=== PATIENT | female | born 1980 | race American Indian/Alaskan Native ===

== ENCOUNTER 2017-07-12 07:11 | Emergency (ER) | payer OTHER, SELFPAY | END 2017-07-12 08:20 | disposition home or self-care (01) | PROVIDERS: Emergency Provider Emergency Medicine; PCP Orthopaedic Surgery; Visit Provider Emergency Medicine | DX: S46.912A Strain of unspecified muscle, fascia and tendon at shoulder and upper arm level, left arm, initial encounter (principal); T73.3XXA Exhaustion due to excessive exertion, initial encounter | CPT/HCPCS: 99282 ==